=== PATIENT | female | born 2000 | race Caucasian/White ===

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

== ENCOUNTER 2019-02-27 21:10 | Emergency (ER) | payer MEDICAID, SELFPAY ==
[2018-09-23 15:36] VITALS: BMI 25.1
[2019-02-27 21:11] VITALS: BP 128/74; PULSE 89; RESP 18; TEMP 36.8; O2SAT 97; BMI 26.1
[2019-02-27] MEDS: 0.9% Normal Saline 1,000 ML 125 ML IV (22:11)
[2019-02-27 22:16] VITALS: BP 102/64; BP 108/88; BP 112/54; PULSE 82; PULSE 85; PULSE 89
[2019-02-27 22:21] LABS: Absolute Lymphocyte Count 2.95 X10^3/ul (0.83-4.51); Absolute Neutrophil Count 4.9 X10^3/uL (2.0-7.7); Basophil# 0.03 X10^3/uL; Basophil% 0.3 % (0-1); Eosinophils% 7.5 % (0-5); Hematocrit 38.7 % (37-47); Hemoglobin 12.9 g/dl (12.0-15.0); Lymphocyte # 2.95 X10^3/ul (4.0); Lymphocyte % 31.8 % (19-41); Mean Corp Hgb Conc 33.3 g/gl (32-36); Mean Corpuscular Hgb 27.6 pg (27.0-32.0); Mean Corpuscular Volume 82.9 fL (81-99); Mean Platelet Vol. 9.7 fl (6.2-12.0); Monocyte# 0.67 X10^3/uL; Monocyte% 7.2 % (0-10); Neutrophil # 4.92 X10^3/uL (2.7-7.7); Platelet Count 267 K/mm3 (150-450); RBC Distribution Width CV 12.8 % (11.6-14.6); RBC Distribution Width SD 38.4 fl (35.1-43.9); Red Blood Count 4.67 M/mm3 (4.2-5.4); White Blood Count 9.3 K/mm3 (4.4-11.0)
[2019-02-27 22:22] LABS: POSITIVE COUNT NO; POSITIVE DIFFERENTIAL NO; POSITIVE MORPHOLOGY NO
[2019-02-27 22:27] LABS: Anion Gap 8 (5-15); BUN 8 mg/dL (7-18); BUN/Creat Ratio 10.7 RATIO (10-20); Chloride 110 mmol/L (98-107); Creatinine, Serum 0.75 mg/dL (0.55-1.02); EST Glomerular Filtration Rate 105 mL/min (>60); Est Glom Filt Rate - Afr Amer 127 mL/min (>60); Glucose 88 mg/dL (74-106); Potassium 3.2 mmol/L (3.5-5.1); Sodium Level 142 mmol/L (136-145)
--- NOTE | 2019-02-27 22:40 | ED.VISSUMM ---
- ER Visit Summary Date of Service: 02/27/19 Chief Complaint: [Blood in stool] History of Present Illness: The patient is a 18 F [presents the emergency room with complaint of blood in her stool that started 4 days ago. Patient states that every time she has a bowel movement it is bloody and the toilet bowl. Patient also notices blood when she wipes. Patient denies any fever. She denies any recent antibiotic usage. Patient did have a hemorrhoid during her last but she states at that time she felt a lump around her anus and she does not have anything like that this time around. There is no family history of inflammatory bowel disease. Patient otherwise feels well. She denies feeling lightheaded or dizzy.] Physical Examination: [HEENT-PERRLA, EOMI. Cranial nerves II through XII grossly intact. TMs clear. Mucous membranes moist. No adenopathy. Cardiovascular-regular rate and rhythm without murmur or ectopy Lungs-clear to auscultation, chest wall stable without crepitus or subcu emphysema Abdomen-normoactive bowel sounds, soft, nontender, no rebound or rigidity, no peritoneal signs. Rectal exam-no hemorrhoids noted on exam. Minimal stool in the rectal vault however he was Hemoccult positive. No masses palpated in the rectal vault. Extremities-intact ?4, normal range of motion, normal pulses, atraumatic] Test Results: [CBC with differential showed a white count of 9.3, hemoglobin 12.9, hematocrit 39, placed 267. Chemistries unremarkable. Hemoccult was positive. Orthostatic vital signs were negative.] Emergency Department Course and Treatment: [Patient was given normal saline on arrival.] Treatment Plan: [Patient case was discussed with Dr. Lal who will see patient in the office. At this point I do not feel any imaging is indicated.] Disposition: [Discharged to home in stable condition. Patient advised to return if persistent bleeding, lightheadedness, fever, abdominal pain, or conditions worsen anyway.] Impression: [Rectal bleeding-stable] This note was generated with [employer] dictation software. It may contain incorrect words, spelling, and punctuation that were not noted in review of the chart prior to signing ED Disposition - Plan for ED Patient: Referrals: Care Physician,No Primary [Primary Care Provider] -
--- NOTE | 2019-02-27 22:44 | ED.DEP ---
ED Disposition - Plan for ED Patient: Instructions: ED Hematochezia Stable Referrals: Care Physician,No Primary [Primary Care Provider] - Junior Lal MD [STAFF PHYSICIAN] -
[2019-02-27 22:59] LABS: Lactic Acid 2.1 mmol/L (0.4-2.0)
--- NOTE | 2019-02-27 23:00 | ED.RN ---
lab called with critical lab results. Lactic acid 2.1. Dr. manley made aware no new orders at this time
[2019-02-27 23:06] VITALS: BP 110/64; PULSE 82; RESP 16; O2SAT 99
[2019-02-28 02:10] LABS: Reflex Lactate? Y
== END 2019-02-27 23:12 | disposition home or self-care (01) ==
PROVIDERS: Emergency Provider Emergency Medicine
DX: K62.5 Hemorrhage of anus and rectum (principal)
CPT/HCPCS: 80048; 82274; 83605; 85025; 96360; 99284; J7030; A4216

== ENCOUNTER 2019-03-25 07:57 | Day surgery (SDC) | payer MEDICAID, SELFPAY ==
[2019-03-05 14:25] VITALS: BMI 26.1
--- NOTE | 2019-03-20 09:34 | HP_ITS ---
Intake Vital Signs 03/05/19 Body Mass Index (BMI) 26.1 03/05/19 Height 5 ft 3 in 03/05/19 Weight: 160 lb 03/05/19 Body Mass Index (BMI) 28.3 03/05/19 Blood Pressure 122/71 H 03/05/19 Blood Pressure Location Lt brachial 03/05/19 Blood Pressure Position Sitting 03/05/19 Respiratory Rate 18 Intake Visit Reasons: Rectal bleeding Chief Complaint: Sepsis, UTI, Right Mastitis Records Management Coordinator Required: No Is patient in pain?: No Allergies No Known Allergies Allergy (Verified 03/05/19 14:25) [facility] Medical History Uterine cramping (Resolved) Frontal headache (Resolved) Active labor at term (Resolved) History of marijuana use (Inactive) Rubella non-immune status, antepartum (Chronic) (normal spontaneous vaginal delivery) (Inactive) First degree perineal laceration during delivery (Inactive) Dysuria (Acute) Fever and chills (Acute) Swelling and redness of the right breast (Acute) Surgical History Status post right breast biopsy (Acute) Social History Smoking Status: Never smoker alcohol intake: never HPI HPI HPI: CARI MANE, is a 18 F who presents to the office today for HPI HPI Surgical H&P: Yes HPI: CARI MANE, is a 18 F who presents to the office today for evaluation for rectal bleeding. Patient was seen and was hospitals emergency department on 02/27/2019. Patient states that she had about a 2-week history of blood in her stool and blood in the toilet bowl. She also noticed that she had blood when she was wiping. She was denying any fevers she noted that she had a hemorrhoid during her she has no family history of inflammatory bowel disease. She is not complaining of any pain in the perianal area. At the time of her visit she had a rectal exam which was Hemoccult positive. With minimal stool in the vault. ROS General General: No weight change, appetite, fatigue, colon cancer, breast cancer or weakness HEENT HEENT: No difficulty swallowing, eye injury, eye surgery, swollen glands or hoarseness Endo Endocrine: No thyroid disease, diabetes mellitus, thyroid cancer, Hair loss, heat intolerance or cold intolerance Skin Skin: No rash or changing moles Breast Breast: No left breast lump, right breast lump, nipple discharge, breast pain, abnormal mammogram, abnormal US or breast enlargement Musc Musculoskeletal: No back problems, arthritis, rheumatoid arthritis, gout or joint pain Cardio Cardiovascular: No murmur, pacemaker, heart disease, atrial fibrillation, high blood pressure, heart attack, heart stent, palpitations, shortness of breat with exertion or chest pain Psych Psychiatric: No depression, anxiety or hearing voices Resp Respiratory: No shortness of breath, No sleep apnea, No cough, No COPD, No asthma, No emphysema, No wheezing Gastro Gastrointestinal: No abdominal pain, No nausea or vomiting, No diarrhea, Yes constipation, Yes blood in stool, No acid reflux, Yes hemorrhoids, No ulcers, No gallbladder problem, No black,tarry stools Taran Hematologic: No blood thinners, No blood disorders, No bleeding, No anemia, No blood clots Neuro Neurologic: No system reviewed and no additional complaints, except as docu, No as per HPI, No abnormal walking, No abnormal hearing, No abnormal movements, No abnormal speech, No behavioral changes, No burning sensations, No confusion, No seizure-like activity, No unsteadiness, No dizziness, No localized weakness, No frequent falls, No headache(s), No lack of coordination, No loss of vision, No memory loss, No numbness, No other visual disturbances, No radiating pain, No restless legs, No sensory deficit, No fainting, No tingling, No tremor(s), No weakness, No other Exam Const General: no acute distress, well developed, well hydrated Orientation: oriented to person, oriented to place, oriented to time [facility] Head: normocephalic, atraumatic Ears: external ears normal Mouth: moist mucous membranes Eyes Sclera: sclerae normal Pupils: normal by confrontation Neck Neck: no lymphadenopathy noted Neck mass: No Thyroid: thyroid normal, symmetrical Chest Chest palpation & inspection: normal inspection of the chest Breast Palpation: No nipple discharge Resp Effort & Inspection: normal respiratory effort Auscultation: clear to auscultation bilaterally Percussion: percussion normal Cardio Rate: regular rate Rhythm: regular rhythm Heart Sounds: no murmurs GI Palpation: soft, no hepatosplenomegaly, no masses, nontender Rectal Exam: other Other: Patient has normal perianal exam with no thrombosed hemorrhoid Extrem General: normal to inspection, no clubbing, cyanosis or edema Assessment & Plan 1. Rectal hemorrhage K62.5 2. Heme positive stool R19.5 Plan I have discussed the above with the patient. I have offered the patient colonoscopy for evaluation. I have explained the risks/benefits of the procedure and described the procedure. I have discussed the risks with the patient, including but not limited to: infection, bleeding, perforation of the GI tract requiring emergency surgery, inability to complete the procedure, injury to any internal organs, complications of anesthesia, etc. - the patient understands and agrees to proceed. I have answered all the patient's questions to the patient's satisfaction and the patient has no further questions. The patient has been given instructions for the colon cleansing preparation. Coding Level of Care Code Off vis,new,level 3 Diagnoses Rectal hemorrhage K62.5 Heme positive stool R19.5 03/20/19 0934 <Electronically signed by Roger mishra MD> Date _ Roger Delarosa MD I have re-examined the patient. There are no clinical changes since date of exam.
[2019-03-25 08:10] VITALS: BP 118/67; PULSE 72; RESP 16; TEMP 36.4; O2SAT 100; BMI 25.9
[2019-03-25 08:19] LABS: Internal QC Validated? YES +Cl - CLEAR BKGD; Pregnancy, Urine Negative Negative
--- NOTE | 2019-03-25 09:00 | COLBX_PTH ---
PATIENT: CARI MANE LOC: EN U#:[id number] AGE/SX: 19/F ROOM: RE03/25/[address]: Dr. Roger Delarosa MD : 2000 BED: DIS: 03/25/2019 SPEC #: [id number] RECD: 03/25/19 10:09 STATUS: MARILYN GRANT #: [id number] LACEY: 03/25/19 09:[address]: Roger Delarosa DEPT: SURGICAL PATHOLOGY RECD BY: Kashmir Briceño ENTERED: 03/25/19 10:59 SP TYPE: COLON BX OTHR DR: No Primary Care Phys Tissues: Descending colon Procedures: Surgery Specimen Level IV HEADER OPERATION: Colonoscopy (MAC) PRE-OP DIAGNOSIS: Rectal hemorrhage, heme-positive stool TISSUE SUBMITTED: Descending colon biopsies MICROSCOPIC DIAGNOSIS Descending colon biopsies: Colonic mucosa showing lamina propria with vascular congestion, associated recent mucosal hemorrhage, edema, attenuation and erosion of the superficial crypt epithelium. See comment. CE:carolin 03/26/19 COMMENT No active cryptitis or granuloma is identified. A rare focus of eosinophilic cryptitis is noted. Some of the findings described may be procedurally related. Clinical correlation is recommended. MICROSCOPIC DESCRIPTION Slides are reviewed. GROSS DESCRIPTION Received in fixative is one container labeled with the patient's name and designated descending colon biopsies. The specimen consists of three irregular fragments of padilla-pink soft tissue that in aggregate measure 0.5 x 0.2 x 0.2 cm. The specimen is totally submitted in one cassette. / CE:carolin 03/25/19 TC:5 CPT: 18723
[2019-03-25 09:23] VITALS: BP 118/67; BP 88/42; PULSE 71; RESP 20; TEMP 36.4; O2SAT 100
--- NOTE | 2019-03-25 09:27 | OP.ENDO_ITS ---
03/25/2019 No Primary Care Physician Re : Colonoscopy procedure for Justin Mcadams Dear Care Physician This procedure was performed on Monday, March 25, 2019. My impressions and recommendations are as follows: Impressions : - The examined portion of the ileum was normal. No specimens collected. - Erythematous mucosa in the rectum. Biopsied. - Non-bleeding external and internal hemorrhoids. - The examination was otherwise normal. Recommendations : - Discharge patient to home. - Resume previous diet. - Continue present medications. - Await pathology results. - Repeat colonoscopy (date not yet determined) for surveillance based on pathology results. - Return to my office in 1 week. My findings are described in the full procedure note, which is enclosed. If I can be of further assistance, please feel free to contact me at Doctor phone number(s): , Fax: [phone], Work: . Sincerely, MD Roger Hansen MD 03/25/2019 9:27:40 AM This report has been signed electronically.
[2019-03-25 09:30] VITALS: BP 102/41; BP 118/67; PULSE 68; RESP 18; O2SAT 100
[2019-03-25 09:35] VITALS: BP 118/67; BP 90/37; PULSE 59; RESP 16; O2SAT 100
[2019-03-25 09:40] VITALS: BP 100/73; BP 118/67; PULSE 64; RESP 16; TEMP 36.8; O2SAT 100
[2019-03-25 09:57] VITALS: BP 118/67
== END 2019-03-25 10:06 | disposition home or self-care (01) ==
LOC: EN 07:58 → AC 08:00
PROVIDERS: Anesthesiology; Referring Provider Surgery; Visit Provider Surgery
PROC: 0DJD8ZZ Inspection of Lower Intestinal Tract, Via Natural or Artificial Opening Endoscopic (ICD-10-PCS; CPT 45378; principal; 2019-03-25 08:55)
DX: K62.5 Hemorrhage of anus and rectum (principal); R19.5 Other fecal abnormalities; K64.4 Residual hemorrhoidal skin tags; K64.8 Other hemorrhoids
CPT/HCPCS: 45380; 81025; 88305; J7120; J2405

== ENCOUNTER 2019-06-21 10:03 | Emergency (ER) | payer MEDICAID, SELFPAY ==
[2019-06-21 10:04] VITALS: BP 125/58; PULSE 93; RESP 15; TEMP 36.8; O2SAT 97; BMI 27.4
--- NOTE | 2019-06-21 10:33 | ED.DCSUM_ITS ---
History of Present Illness <Osvaldo Barcenas - Last Filed: 06/21/19 10:40> Informant: Patient, Family Onset: Days - 4 days Context: Gradual Onset Timing: Continuous Quality: aching Location: throat Current Severity: Moderate Maximum Severity: Severe Worsened by: Swallowing, Eating Solids, Drinking Liquids Relieved by: Tylenol Associated Symptoms: Nasal Congestion, Nonproductive cough Narrative: 19-year-old female no significant past medical history presents with cough sore throat and congestion. Symptoms have been ongoing for 4 days. She is concerned she may have strep throat. She denies any fevers. Denies difficulty breathing or swallowing or difficulty opening closing her mouth. Denies headache or neck pain. Denies nausea vomiting or diarrhea. Denies lightheadedness or dizziness. Prior similar symptoms: Yes Recent Illness/Hospitalization: No <JeanroshniJunior - Last Filed: 06/21/19 11:25> Chief Complaint: Cold Sx Past Medical History <Per Barcenassaljyothi - Last Filed: 06/21/19 10:40> Prior records reviewed: Yes Past Medical History: None Surgical History: no surgical history Smoking Status: Never smoker - Family History Maternal Family History: Reports: No pertinent history Paternal Family History: Reports: No pertinent history <JeanroshniJunior - Last Filed: 06/21/19 11:25> - Allergies and Home Meds Allergies/Adverse Reactions: Allergies No Known Allergies Allergy (Verified 06/21/19 10:03) Primary Care Physician: Care Physician,No Primary [Primary Care Provider] - Review of Systems All systems negative except as indicated General: Denies: Chills, Fever ENT: Reports: Sore throat Respiratory: Reports: Cough <JeanroshniJunior - Last Filed: 06/21/19 11:25> Physical Exam Vital Signs/Narrative: Vital Signs Temp Pulse Resp BP Pulse Ox 06/21/19 10:04 98.2 F 93 15 125/58 H 97 <Per Barcenassaljyothi - Last Filed: 06/21/19 10:40> Vital Signs/Narrative: Vital Signs Temp Pulse Resp BP Pulse Ox 06/21/19 10:04 98.2 F 93 15 125/58 H 97 Inital Vital Signs reviewed: Yes General: Well nourished, Well developed Head: Normocephalic, Atraumatic Eyes: Perrl, EOMI Ears: Normal external canal, TM's clear Nose: Normal Inspection Mouth/Throat: Airway Patent, Posterior Oropharyngeal Erythema. Negative for: D ry Mucous Membranes Tonsils: Right Tonsilar Erythema, Left Tonsilar Erythema, Right Tonsilar Swelling, Left Tonsilar Swelling. Negative for: Right Tonsilar Exudates, Left Tonsilar Exudates Neck: Supple, Nontender, Anterior Lymphadenopathy Cardiovascular: Regular rate, Regular rhythm, No murmurs Respiratory: No distress, CTA bilaterally, Chest nontender Abdomen: Soft, Nontender, Nondistended, Normal bowel sounds, No masses Back: Nontender, Normal Inspection Extremities: Nontender, No edema Skin: Normal color, No rash Neurological: Alert, Oriented x3 Psychological: Normal affect <Junior Ruiz - Last Filed: 06/21/19 11:25> Diagnostic/Tx/Re-eval - Medical Decision Making Patient seen with Junior, agree with history and physical exam, patient complains of a sore throat type syndrome the HEENT exam shows some very mild erythema to the throat no exudate no lymphadenopathy airways intact will obtain rapid strep throat screening see the chart for full details <Osvaldo Barcenas - Last Filed: 06/21/19 10:40> ED Disposition <Osvaldo Barcenas - Last Filed: 06/21/19 10:40> <Junior Ruiz - Last Filed: 06/21/19 11:25> - Plan for ED Patient: Disposition: Home or Assisted Living Diagnosis: Viral pharyngitis Instructions: PHARYNGITIS, Viral Prescriptions: Naproxen [Naprosyn] 500 mg PO BID PRN #20 tab Prescription Printed Referrals: Myke Van MD [NON-STAFF] -
[2019-06-21] MEDS: Naproxen 500 MG Tablet PO (10:54)
[2019-06-21 11:40] VITALS: RESP 17
--- NOTE | 2019-06-23 10:42 | ED.RN ---
POSITIVE STREP TEST RESULTED BY LAB. CALLED IN PRESCRIPTION FOR ANTIBIOTICS ORDERED BU DR VALLE. NOTIFIED PT OF RESULT AND VERIFIED PHARMACY ([facility]EL[facility] DAVIDSON) THE SCRIPT WAS CALLED TO.
== END 2019-06-21 11:47 | disposition home or self-care (01) ==
PROVIDERS: Emergency Provider Physician Assistant Medical
DX: J02.8 Acute pharyngitis due to other specified organisms (principal); B97.89 Other viral agents as the cause of diseases classified elsewhere
CPT/HCPCS: 87077; 87880; 99282

== ENCOUNTER 2019-08-23 12:29 | Emergency (ER) | payer MEDICAID, SELFPAY ==
[2019-08-23 12:29] VITALS: BP 118/72; PULSE 93; RESP 16; TEMP 36.4; O2SAT 99; BMI 26.4
--- NOTE | 2019-08-23 13:25 | CT_ITS ---
STUDY: CT BRAIN WITHOUT CONTRAST REASON FOR EXAM: Female, 19 years old. Headache vomiting post fall 2 days ago RADIATION DOSAGE (If Supplied By Facility): CTDIvol = ( 44.99 ) mGy, DLP = ( 711.75 ) mGycm TECHNIQUE: Transaxial CT imaging of the brain was performed without administration of intravenous contrast material. Individualized dose optimization techniques were used for this CT. COMPARISON: No relevant priors. FINDINGS: Normal soft tissue structures. Normal calvarium. Normal size ventricles and extra-axial spaces for the patient's age. Normal white matter tracts of the cerebral hemispheres. Normal basal ganglia and thalami. Normal brainstem. Normal cerebellum. There is no intracranial hemorrhage. There are no findings of an acute ischemic infarction. There is mucoperiosteal inflammatory disease of the paranasal sinuses consistent with mild chronic sinusitis. CT/Brain/Head without Contrast IMPRESSION: Normal unenhanced CT scan of the brain. Electronically Signed: Tamiko Garibay MD at 14:45 EST Tel , Service support ,
--- NOTE | 2019-08-23 13:33 | ED.VIS.HA ---
History of Present Illness Chief Complaint: Headache Informant: Patient Onset: Days - 2 Context: Gradual Timing: Continuous Quality: Throbbing Current Severity: Severe Maximum Severity: Severe Associated Symptoms: - - light sensativity Injury: Fall Narrative: Patient is a 19-year-old female with history of headaches but not migraines presented with a headache. Patient is concerned because she had a fall 2 days ago the bathtub. She hit the back of her head. She did not lose consciousness. Since that she had a more severe headache. She states is her entire head it is throbbing in nature. Is associated photophobia. States she also has some neck pain with it. Her headache is worse when she looks puts her head down. She took ibuprofen last night with no relief of her symptoms. She denies any associated vision changes, numbness, tingling, or nausea. She did have one episode of vomiting yesterday. She states is not concern for . She denies any other complaints at this time. Past Medical History - Allergies and Home Meds Allergies/Adverse Reactions: Allergies No Known Allergies Allergy (Verified 08/23/19 12:32) Primary Care Physician: Care Physician,No Primary [Primary Care Provider] - Prior records reviewed: Yes Past Medical History: None Surgical History: no surgical history Smoking Status: Never smoker - Family History Maternal Family History: Reports: No pertinent history Paternal Family History: Reports: No pertinent history Review of Systems General: Denies: Chills, Fever, Sweats Eyes: Denies: Visual changes - bilaterally, Blurred Vision - bilaterally, Diplopia ENT: Denies: Rhinorrhea, Sore throat Cardiovascular: Denies: Chest pain, Palpitations Respiratory: Denies: Dyspnea, Cough, Dyspnea on exertion Gastrointestinal: Reports: Vomiting. Denies: Abdominal pain, Nausea, Diarrhea, Melena, Hematochezia Genitourinary: Denies: Dysuria, Hematuria, Frequency Musculoskeletal: Reports: Neck pain. Denies: Back pain, Extremity Pain Skin: Denies: Rash, Wounds Neurological: Reports: Headache. Denies: Weakness, Numbness Physical Exam Vital Signs/Narrative: Vital Signs Temp Pulse Resp BP Pulse Ox 08/23/19 12:29 97.5 F L 93 16 118/72 99 General: Well nourished, Well developed, - - Patient on phone when I walked into the room Head: NC, AT Eyes: Perrl, EOMI ENT: Moist mucous membranes, No rhinorrhea, TM's clear Neck: Supple, No Lymphadenopathy, No JVD, Nontender, No Meningismus, Paraspinal Tenderness - bilateral, - - Normal ROM Cardiovascular: Regular rate, Regular rhythm, No murmurs Respiratory: No distress, CTA bilaterally, Chest nontender Abdomen: Soft, Nontender, Nondistended, Normal bowel sounds Back: Nontender, Normal Inspection Extremities: Nontender, No edema Skin: Normal color, No rash Neuro: Alert, Oriented x3, Cranial nerves II-XII grossly intact, Normal Strength, Normal Sensation, Normal DTR, Normal Gait, - - Coordination normal Psychological: Normal affect Diagnostic/Tx/Re-eval Clinical Impression(s) from Imaging Studies Brain CT 08/23/19 13:25 IMPRESSION: Normal unenhanced CT scan of the brain. Electronically Signed: Tamiko Garibay MD at 14:45 EST Tel , Service support , - Medical Decision Making Patient evaluated for headache after head injury 2 days ago. She has normal neurologic exam. She does not have any meningeal signs. I suspect her headache is a tension headache in nature. Because of her injury head, vomiting and photophobia a CT is obtained. This is grossly negative. She does not have any midline tenderness and has normal range of motion of her neck. I do not think neck imaging is indicated per [facility] criteria. Patient was initially given Compazine and Benadryl as well as IV fluids. Once a head CT was read as negative she is then given IV Toradol. On reevaluation she is feeling much better. She is given instructions on tension headache. Patient is counseled on signs and symptoms requiring return to the emergency room. Patient verbalizes agreement and understand this plan. Patient discharged home in stable and improved condition. ED Disposition - Plan for ED Patient: Disposition: Home or Assisted Living Diagnosis: Headache, Closed head injury Instructions: HEADACHE, Tension Prescriptions: Ibuprofen [Motrin] 600 mg PO Q6H PRN PRN #20 tab PRN Reason: Pain Or Fever Prescription Printed Referrals: Care Physician,No Primary [Primary Care Provider] - Additional Instructions: Drink plenty of fluids. Take ibuprofen as needed for pain. Follow-up with primary care doctor in the next few days if no improvement. Return to emergency room with worsening symptoms.
[2019-08-23] MEDS: proCHLORPERazine 10 MG/2 ML Vial IV (13:39)
[2019-08-23] MEDS: 0.9% Normal Saline 1,000 ML 999 ML IV (13:39)
[2019-08-23] MEDS: DiphenhydrAMINE 50 MG/ML Syringe IV (13:40)
[2019-08-23] MEDS: Ketorolac 15 MG/ML Vial IV (15:37)
[2019-08-23 15:51] VITALS: BP 111/68; PULSE 91; RESP 16; O2SAT 98
[2019-08-23 16:14] VITALS: BP 138/74; PULSE 80; RESP 18; O2SAT 98
== END 2019-08-23 16:15 | disposition home or self-care (01) ==
PROVIDERS: Emergency Provider Emergency Medicine
DX: R51 Headache (principal); S09.90XA Unspecified injury of head, initial encounter; W18.2XXA Fall in (into) shower or empty bathtub, initial encounter; Y93.E1 Activity, personal bathing and showering; Y92.002 Bathroom of unspecified non-institutional (private) residence as the place of occurrence of the external cause; Y99.8 Other external cause status
CPT/HCPCS: 70450; 96361; 96374; 96375; 99283

== ENCOUNTER 2019-11-02 14:28 | Emergency (ER) | payer SELFPAY ==
[2019-11-02 14:29] VITALS: BP 131/63; PULSE 80; RESP 16; TEMP 36.8; O2SAT 96; BMI 25.8
[2019-11-02] MEDS: 0.9% Normal Saline 1,000 ML 1000 ML IV (14:53)
[2019-11-02] MEDS: Ondansetron 4 MG/2 ML Vial IV (14:54)
[2019-11-02] MEDS: Dicyclomine 20 MG/2 ML Vial IM (14:54)
--- NOTE | 2019-11-02 14:54 | ED.VIS.GEN ---
History of Present Illness Chief Complaint: Abd Pain Informant: Patient Onset: Days Context: Gradual Onset Timing: Intermittent Current Severity: Moderate Maximum Severity: Moderate Narrative: The patient presents to the emergency department with abdominal cramping and diarrhea. Patient states that about a week ago, she had a 24-hour type influenza with cough and fever. She states that is since resolved. Over the past 3 days, she has had intermittent cramping lower abdominal pain with diarrhea. She states that she is had 3 or 4 episodes a day. She states when she feels like she has to move her bowels, the pain gets worse. She denies any fever. She denies any other systemic symptoms. She is otherwise been in her normal state of health. She denies any history of inflammatory bowel disease or prior abdominal surgery. She denies recent antibiotic use. She is noticed no blood in the bowel movements. Prior similar symptoms: No Recent Illness/Hospitalization: No Past Medical History - Allergies and Home Meds Allergies/Adverse Reactions: Allergies No Known Allergies Allergy (Verified 11/02/19 14:29) Primary Care Physician: Care Physician,No Primary [Primary Care Provider] - Prior records reviewed: Yes Past Medical History: None Surgical History: no surgical history Smoking Status: Never smoker - Family History Maternal Family History: Reports: No pertinent history Paternal Family History: Reports: No pertinent history Review of Systems General: Denies: Chills, Fever, Sweats Eyes: Denies: Visual changes - bilaterally, Diplopia ENT: Denies: Rhinorrhea, Sore throat Cardiovascular: Denies: Chest pain, Palpitations Respiratory: Denies: Dyspnea, Cough, Dyspnea on exertion Gastrointestinal: Reports: Abdominal pain, Nausea, Diarrhea. Denies: Vomiting, Melena, Hematochezia Genitourinary: Denies: Dysuria, Hematuria, Frequency Musculoskeletal: Denies: Back pain, Extremity Pain Skin: Denies: Rash, Wounds Neurological: Denies: Headache, Weakness, Numbness Physical Exam Vital Signs/Narrative: Vital Signs Temp Pulse Resp BP Pulse Ox 11/02/19 14:29 98.2 F 80 16 131/63 H 96 Inital Vital Signs reviewed: Yes General: Well nourished, Well developed, No Acute Distress Head: Normocephalic, Atraumatic Eyes: Perrl, EOMI ENT: Moist mucous membranes, No rhinorrhea Neck: Supple, Nontender Cardiovascular: Regular rate, Regular rhythm, No murmurs Respiratory: No distress, CTA bilaterally, Chest nontender Abdomen: Soft, Nontender, Nondistended, Normal bowel sounds Back: Nontender, Normal Inspection Extremities: Nontender, No edema Skin: Normal color, No rash Neurological: Alert, Oriented x3, Cranial nerves II-XII grossly intact, Normal Strength, Normal Sensation Psychological: Normal affect, Normal Mood Diagnostic/Tx/Re-eval Clinical Impression(s) from Imaging Studies Abdomen/Pelvis CT 11/02/19 15:03 IMPRESSION: No definite acute abnormality. However, evaluation of the GI tract is markedly limited by the absence of oral contrast, and in particular, nonspecific colitis is not excluded. Electronically Signed: Blaine Barnett MD at 16:22 EST , Service support , Abnormal Lab Results 11/02/19 11/02/19 11/02/19 14:50 14:50 15:19 WBC 13.6 H RBC 4.64 Hgb 13.4 Hct 40.3 MCV 86.9 MCH 28.9 MCHC 33.3 RDW Std Deviation 39.7 RDW Coeff of Jeffery 12.6 Plt Count 265 MPV 9.6 Immature Gran % (Auto) 0.200 Neut % (Auto) 75.8 H Lymph % (Auto) 15.2 L [place] % (Auto) 6.1 Eos % (Auto) 2.4 Baso % (Auto) 0.3 Absolute Neuts (auto) 10.3 H Absolute Lymphs (auto) 2.06 Nucleated RBC % 0 Sodium 142 Potassium 3.4 L Chloride 114 H Carbon Dioxide 23.0 Anion Gap 5 BUN 7 Creatinine 0.72 Estim Creat Clear Calc 103.10 Est GFR (MDRD) Af Amer 132 Est GFR (MDRD) Non-Af 109 BUN/Creatinine Ratio 9.7 L Glucose 89 Calcium 8.7 Total Bilirubin 0.40 AST 12 L ALT 26 Alkaline Phosphatase 113 Total Protein 7.5 Albumin 3.6 Globulin 3.9 Albumin/Globulin Ratio 0.9 Urine Color Urine Clarity Urine pH Ur Specific [place] Urine Protein Urine Glucose (UA) Urine Ketones Urine Occult Blood Urine Nitrite Urine Bilirubin Urine Urobilinogen Ur Leukocyte Esterase Urine RBC Urine WBC Ur Squamous Epith Cells Calcium Oxalate Crystal Urine Bacteria Urine Mucus Urine Test Negative 11/02/19 15:19 WBC RBC Hgb Hct MCV MCH MCHC RDW Std Deviation RDW Coeff of Jeffery Plt Count MPV Immature Gran % (Auto) Neut % (Auto) Lymph % (Auto) [place] % (Auto) Eos % (Auto) Baso % (Auto) Absolute Neuts (auto) Absolute Lymphs (auto) Nucleated RBC % Sodium Potassium Chloride Carbon Dioxide Anion Gap BUN Creatinine Estim Creat Clear Calc Est GFR (MDRD) Af Amer Est GFR (MDRD) Non-Af BUN/Creatinine Ratio Glucose Calcium Total Bilirubin AST ALT Alkaline Phosphatase Total Protein Albumin Globulin Albumin/Globulin Ratio Urine Color Yellow Urine Clarity Clear Urine pH 6.0 Ur Specific [place] 1.025 Urine Protein Negative Urine Glucose (UA) Normal Urine Ketones 5 H Urine Occult Blood Negative Urine Nitrite Negative Urine Bilirubin Negative Urine Urobilinogen Normal Ur Leukocyte Esterase 25 H Urine RBC 0 SEEN Urine WBC 0-5 SEEN Ur Squamous Epith Cells 0-5 SEEN Calcium Oxalate Crystal 1+ Urine Bacteria 0 SEEN Urine Mucus 1+ Urine Test - Medical Decision Making The patient presents with diarrhea and cramping abdominal pain. She is not had fever chills. She did have recent GI illness that is now re-exacerbated. Screening labs obtained. The patient does have a leukocytosis, but otherwise labs are unremarkable. She was not . Given her pain and history, she did undergo CT which did not show any definitive intra-abdominal process but cannot rule out mild colitis. I am going to place the patient on 3 days of Cipro. She also given Bentyl for abdominal cramping. She is comfortable with this plan of care. She was counseled on concerning symptoms and reasons to return. She will be discharged home. Impression 1. Acute colitis ED Disposition - Plan for ED Patient: Instructions: DIARRHEA, Bacterial (5y-Adult) Prescriptions: Dicyclomine HCl [Bentyl] 20 mg PO TIDAC #20 cap Prescription Printed Ciprofloxacin [Cipro] 500 mg PO BID #6 tab Prescription Printed Referrals: Care Physician,No Primary [Primary Care Provider] -
[2019-11-02 15:01] LABS: Absolute Lymphocyte Count 2.06 X10^3/uL (0.83-4.51); Absolute Neutrophil Count 10.3 X10^3/uL (2.0-7.7); Basophil# 0.04 X10^3/uL; Basophil% 0.3 % (0-1); Eosinophil# 0.33 X10^3/uL; Eosinophils% 2.4 % (0-5); Hematocrit 40.3 % (37-47); Hemoglobin 13.4 g/dL (12.0-15.0); Lymphocyte # 2.06 X10^3/ul (4.0); Lymphocyte % 15.2 % (19-41); Mean Corp Hgb Conc 33.3 g/dL (32-36); Mean Corpuscular Hgb 28.9 pg (27.0-32.0); Mean Corpuscular Volume 86.9 fL (81-99); Mean Platelet Vol. 9.6 fl (6.2-12.0); Monocyte# 0.83 X10^3/uL; Monocyte% 6.1 % (0-10); NRBC Flagged by Analyzer 0 % (0-5); Neutrophil # 10.26 X10^3/uL (2.7-7.7); Neutrophil % 75.8 % (47-70); Platelet Count 265 K/mm3 (150-450); RBC Distribution Width CV 12.6 % (11.6-14.6); RBC Distribution Width SD 39.7 fl (35.1-43.9); Red Blood Count 4.64 M/mm3 (4.2-5.4); White Blood Count 13.6 K/mm3 (4.4-11.0)
--- NOTE | 2019-11-02 15:03 | CT_ITS ---
STUDY: CT ABDOMEN AND PELVIS WITH CONTRAST REASON FOR EXAM: Female, 19 years old. ABD PAIN, DIARRHEA RADIATION DOSAGE (If Supplied By Facility): CTDIvol = ( 14.07 ) mGy, DLP = ( 568.70 ) mGycm TECHNIQUE: Transaxial images were obtained from the dome of the diaphragm to the symphysis pubis without oral contrast. IV 100mL Isovue-300 was administered. Sagittal and coronal images were reconstructed. Individualized dose optimization techniques were used for this CT. COMPARISON: None. FINDINGS: The visualized lung bases are unremarkable. The visualized portions of the heart are within normal limits. Normal liver. Normal gallbladder and extrahepatic biliary system. Normal spleen. Normal pancreas. Normal bilateral adrenal glands. Normal right kidney. Normal left kidney. Evaluation of the GI tract is limited by absence of oral contrast. Cannot exclude stomach wall thickening. No dilated loops of bowel or evidence for obstruction. Cannot exclude segmental thickening of the carpio of the small or large bowel. Cannot exclude enteritis or colitis. Appendix within normal limits. Normal abdominal aorta. Normal inferior vena cava. Normal retroperitoneum. Normal urinary bladder. Normal visualized uterus. Normal abdominal wall. Normal osseous structures. CT/Abdomen/Pelvis W IV Cont ONLY IMPRESSION: No definite acute abnormality. However, evaluation of the GI tract is markedly limited by the absence of oral contrast, and in particular, nonspecific colitis is not excluded. Electronically Signed: Blaine Barnett MD at 16:22 EST , Service support ,
[2019-11-02 15:18] LABS: ALB/GLOB Ratio 0.9 RATIO (0.9-2.4); AST(SGOT) 12 U/L (15-37); Alanine Aminotransfer ALT/SGPT 26 U/L (13-56); Albumin, Serum 3.6 g/dL (3.2-5.0); Alkaline Phosphatase 113 U/L (45-117); Anion Gap 5 (5-15); BUN 7 mg/dL (7-18); BUN/Creat Ratio 9.7 RATIO (10-20); Calcium,Total 8.7 mg/dL (8.5-10.1); Chloride 114 mmol/L (98-107); Creatinine, Serum 0.72 mg/dL (0.55-1.02); EST Glomerular Filtration Rate 109 mL/min (>60); Est Glom Filt Rate - Afr Amer 132 mL/min (>60); Globulin 3.9 g/dL (2.2-4.2); Glucose 89 mg/dL (74-106); Potassium 3.4 mmol/L (3.5-5.1); Protein, Total 7.5 g/dL (6.4-8.2); Sodium Level 142 mmol/L (136-145)
[2019-11-02 15:27] LABS: Bacteria 0 SEEN /hpf (None Seen); Red Blood Cells-Urine 0 SEEN /hpf (0-5)
[2019-11-02 15:37] LABS: Color, Urine Yellow (Yellow); Glucose, Dipstick Normal (Normal); Ketone-Dipstick 5 mg/dl (Negative); Leukocyte Esterase-Dipstick 25 /ul (Negative); Nitrite-Dipstick Negative (Negative); Occult Blood-Urine Negative /ul (Negative); Protein-Dipstick Negative (Negative); Specific Gravity, Urine 1.025 (1.002-1.030); Urine Bilirubin Dipstick Negative (Negative); Urine Clarity Clear (Clear); Urine Urobilinogen Normal (Normal)
[2019-11-02 15:55] LABS: Internal QC Validated? YES +Cl - CLEAR BKGD; Pregnancy, Urine Negative Negative
[2019-11-02 16:01] LABS: Mucous, Urine 1+ /hpf (<or=2+); Squamous Epithelial Cells - UA 0-5 SEEN /hpf (5-10); White Blood Cells 0-5 SEEN /hpf (0-5)
[2019-11-02 16:02] LABS: Calcium Oxalate Crystals Ur 1+ /hpf (<or=2+)
[2019-11-02 16:33] VITALS: BP 108/54; PULSE 84; RESP 16; O2SAT 84
== END 2019-11-02 16:40 | disposition home or self-care (01) ==
LOC: ED 15:01
PROVIDERS: Emergency Provider Emergency Medicine
DX: K52.9 Noninfective gastroenteritis and colitis, unspecified (principal)
CPT/HCPCS: 74177; 80053; 81001; 81025; 85025; 96361; 96372; 96374; 99283; J7030; Q9967; A4216; J2405

== ENCOUNTER 2019-11-28 21:54 | Emergency (ER) | payer SELFPAY ==
[2019-11-28 21:55] VITALS: BP 138/66; PULSE 88; RESP 16; TEMP 37.2; O2SAT 97; BMI 25.9
--- NOTE | 2019-11-28 23:34 | ED.VIS.GEN ---
History of Present Illness Chief Complaint: Diarrhea Narrative: Patient is a 19-year-old female who presents with diarrhea. She had loose stools for 2 days and now has watery diarrhea. She complains of intermittent abdominal cramping but no abdominal pain. No history of inflammatory bowel disease. She denies hematochezia. No fever. She reports nausea without vomiting. She was seen last month in the emergency department and underwent a thorough work-up including laboratory studies and CT imaging which showed a question of mild colitis which she was covered with Cipro for. She otherwise denies any medical history. Past Medical History - Allergies and Home Meds Allergies/Adverse Reactions: Allergies No Known Allergies Allergy (Verified 11/02/19 14:29) Primary Care Physician: Care Physician,No Primary [Primary Care Provider] - Past Medical History: None Surgical History: no surgical history Smoking Status: Never smoker - Family History Maternal Family History: Reports: No pertinent history Paternal Family History: Reports: No pertinent history Review of Systems All systems negative except as indicated General: Denies: Fever Cardiovascular: Denies: Chest pain Respiratory: Denies: Dyspnea Gastrointestinal: Reports: Nausea, Diarrhea. Denies: Abdominal pain, Vomiting, Hematochezia Skin: Denies: Rash Neurological: Denies: Headache Physical Exam Vital Signs/Narrative: Vital Signs Temp Pulse Resp BP Pulse Ox 11/28/19 21:55 98.9 F 88 16 138/66 H 97 Inital Vital Signs reviewed: Yes General: Well nourished Head: Normocephalic Eyes: EOMI ENT: Moist mucous membranes Neck: Supple Cardiovascular: Regular rate, Regular rhythm Respiratory: No distress, CTA bilaterally Abdomen: Soft, Nontender, Nondistended Skin: Normal color Neurological: Alert Psychological: Normal affect Diagnostic/Tx/Re-eval - Medical Decision Making Patient is clinically well-appearing. She does not appear clinically dehydrated. Her abdominal exam is benign with no tenderness and she denies any abdominal pain. With her diarrhea she has no history of abdominal surgeries, inflammatory bowel disease, there is no fever or hematochezia. I do not feel any diagnostic work-up is necessary at this time. She was advised on supportive care. She was advised that this is most likely related to viral infection or dietary. She was also advised that even if this is bacterial this is usually self-limiting. I do not believe antibiotics are warranted at this time. She was given Zofran and Imodium and advised on supportive care and discharged. ED Disposition - Plan for ED Patient: Disposition: Home or Assisted Living Diagnosis: Diarrhea Instructions: VOMITING AND DIARRHEA, Nonspecific (Adult) Prescriptions: Ondansetron [Zofran Odt] 4 mg PO Q8H PRN PRN #10 tab PRN Reason: Nausea Prescription Printed Referrals: Care Physician,No Primary [Primary Care Provider] -
[2019-11-28] MEDS: Loperamide 2 MG Capsule 4 MG PO (23:45)
[2019-11-28] MEDS: Ondansetron ODT 4 MG Tablet PO (23:45)
== END 2019-11-28 23:47 | disposition home or self-care (01) ==
PROVIDERS: Emergency Provider Emergency Medicine
DX: R19.7 Diarrhea, unspecified (principal)
CPT/HCPCS: 99283